=== PATIENT | female | born 1980 | race American Indian/Alaskan Native ===

== ENCOUNTER 2017-04-16 13:36 | Emergency (ER) | payer MEDICAID ==
--- NOTE | 2017-04-16 14:23 | Emergency Department Report ---
Entered by BRIDGER PRASAD, acting as scribe for JOEL GREEN NP. Chief Complaint: Abdominal Pain Stated Complaint: RT FLANK PAIN - HPI History of Present Illness: 37 y/o female, nontoxic, NAD, well developed, c/o diffuse right sided abdominal and flank pain beginning 2 weeks ago. She denies dysuria, polyuria, increased urinary frequency, fever, chills, CP, SOB, NVD, blurry vision, or BOOTH. Patient had her gallbladder removed 1 year ago. - Exam Vital Signs: Vital Signs 04/16/17 13:59 Temperature 98.2 F Pulse Rate 76 Respiratory 18 Rate Blood Pressure 131/79 O2 Sat by Pulse 100 Oximetry Physical Exam: GENERAL: The patient is a well-developed, well-nourished male in no apparent distress. Patient is alert and oriented x3. ABDOMEN: Soft, nontender, and nondistended. Positive bowel sounds. Positive diffuse right sided abdominal pain. Positive right CVA tenderness. No epigastric tenderness. No hepatosplenomegaly was noted. No guarding or rebound tenderness, negative epigastric bruit. Negative psoas sign, negative ontiveros sign , negative McBurneys sign Back: no spinal tenderness, no trauma MSE screening note: Focused history and physical exam performed. Due to findings the following was ordered: CBC, CMP, UA, Serum test, amylase, Lipase ED Disposition for MSE Condition: Stable Instructions: Abdominal Pain (ED) This documentation as recorded by the scribe,BRIDGER PRASAD,accurately reflects the service I personally performed and the decisions made by ,JOEL GREEN, CHERYLE.
[2017-04-16 14:34] LABS: Basophils % (Auto) 1.3 % (0.0-1.8); Eosinophils % (Auto) 2.5 % (0.0-4.3); Hematocrit 38.9 % (30.3-42.9); Hemoglobin 12.7 gm/dl (10.1-14.3); Mean Corpuscular HGB Conc 33 % (30-34); Mean Corpuscular Hemoglobin 27 pg (28-32); Mean Corpuscular Volume 83 fl (79-97); Platelet Count 266 K/mm3 (140-440); Red Blood Count 4.69 M/mm3 (3.65-5.03); Red Cell Distribution Width 13.8 % (13.2-15.2); White Blood Count 5.9 K/mm3 (4.5-11.0)
[2017-04-16 14:50] LABS: Amylase 103 units/L (27-131); Lipase 26 units/L (13-60)
[2017-04-16 15:24] LABS: Bilirubin,Urine NEG (Negative); Blood,Urine SM (Negative); Ketones,Urine NEG (Negative); Leukocyte Esterase,Urine TR (Negative); Nitrite,Urine NEG (Negative); Protein,Urine <15 mg/dL mg/dL (Negative); Urobilinogen,Urine < 2.0 mg/dL (<2.0)
[2017-04-16] MEDS ORDERED: NORCO 5/325 PO ONE (16:23)
--- NOTE | 2017-04-16 17:04 | Emergency Department Report ---
HPI - General Chief Complaint: Abdominal Pain Time Seen by Provider: 04/16/17 16:03 - HPI HPI: This is a 37-year-old Afro-[place] female presents to the emergency department from home with complaint of a 2 week history of intermittent right-sided abdominal and/or flank pains. Sometimes she feels it more in the right lower quadrant, sometimes towards the pelvis, and sometimes up in the right upper quadrant. She has a history of a previous cholecystectomy. The patient has been taking Goody's powder for her discomfort without much relief. She denies any nausea, vomiting, fever, dysuria, vaginal bleeding or discharge. She does not currently have a primary care doctor. No recent travel or sick contacts at home. ED Past Medical Hx - Past Medical History Previous Medical History?: Yes Additional medical history: RUQ abd. pain - Surgical History Hx Cholecystectomy: Yes Additional Surgical History: sep 25 - Social History Smoking Status: Never Smoker Substance Use Type: Non Opiate Pain - Medications Home Medications: Home Medications Medication Instructions Recorded Confirmed Last Taken Type Vit-Fe Fumar-FA [ 1 tab PO QDAY 08/03/15 08/12/15 2 Months Ago History Vitamin] HYDROcodone/APAP 5-325 [Culpeper 1 each PO Q6HR PRN #14 tablet 04/16/17 Unknown Rx 5-325 mg TAB] ED Review of Systems ROS: Stated complaint: RT FLANK PAIN Other details as noted in HPI Comment: All other systems reviewed and negative Constitutional: denies: chills, fever Eyes: denies: eye pain, eye discharge, vision change ENT: denies: ear pain, throat pain Respiratory: denies: cough, shortness of breath, wheezing Cardiovascular: denies: chest pain, palpitations Gastrointestinal: abdominal pain. denies: nausea, vomiting Genitourinary: denies: urgency, dysuria, discharge Musculoskeletal: denies: back pain, joint swelling, arthralgia Skin: denies: rash, lesions Neurological: denies: headache, weakness, paresthesias Physical Exam - Physical Exam Vital Signs: Vital Signs 04/16/17 13:59 Temperature 98.2 F Pulse Rate 76 Respiratory 18 Rate Blood Pressure 131/79 O2 Sat by Pulse 100 Oximetry Physical Exam: GENERAL: The patient is well-developed well-nourished. HEENT: Normocephalic. Atraumatic. Extraocular motions are intact. Patient has moist mucous membranes. Pupils equal reactive to light bilaterally. NECK: Supple. Trachea is midline. CHEST/LUNGS: Clear to auscultation. There is no respiratory distress noted. HEART/CARDIOVASCULAR: Regular. There is no tachycardia. There is no gallop rub or murmur. ABDOMEN: Abdomen is soft. There is some mild reproducible right lower quadrant tenderness to palpation. No guarding rebound tenderness. Patient has normal bowel sounds. There is no abdominal distention. SKIN: There is no rash. There is no edema. There is no diaphoresis. NEURO: The patient is awake, alert, and oriented. The patient is cooperative. The patient has no focal neurologic deficits. The patient has normal speech skin is warm and dry. MUSCULOSKELETAL: There is no tenderness or deformity. There is no limitation range of motion. There is no evidence of acute injury. ED Course Vital Signs 04/16/17 13:59 Temperature 98.2 F Pulse Rate 76 Respiratory 18 Rate Blood Pressure 131/79 O2 Sat by Pulse 100 Oximetry ED Medical Decision Making - Lab Data Result diagrams: 04/16/17 14:15 04/16/17 14:15 - Radiology Data Radiology results: report reviewed, image reviewed interpreted by me: Abdominal x-ray shows nonspecific nonobstructive bowel gas. Right upper quadrant ultrasound is a normal examination In a patient with a previous cholecystectomy. CT of the abdomen and pelvis with IV contrast shows no acute intra-abdominal process. 2 hypodense foci in the liver which have characteristics suggesting a benign hemangioma. Focal cortical thinning of the left kidney related to scarring. Adjacent small cyst in the left kidney. Cyst in the right ovary. Tiny nodular densities in stranding in the subcutaneous tenderness fat over both buttocks. - Medical Decision Making 37-year-old female presents to the emergency department with the complaint of 2 weeks of right sided abdominal pains. Her labs are unremarkable including no leukocytosis, electrolyte abnormalities, renal insufficiency, glucose abnormalities. Her belly labs are normal including bilirubin, lipase and LFTs. No urinary tract infection and the patient is not . X-rays of the abdomen and ultrasound of the right upper quadrant were normal examination so without any acute process. CT of the abdomen pelvis with IV contrast shows a right ovarian cyst, liver hemangiomas but no obvious acute process. She will be given referrals for primary care and gastroenterology and CLINICAL PROGRAM CONSULTANT. She will return to the ER with any worsening of her symptoms or any acute distress. - Differential Diagnosis ovarian cyst, appendicitis, colitis, , fibroid Critical Care Time: No Critical care attestation.: If time is entered above; I have spent that time in minutes in the direct care of this critically ill patient, excluding procedure time. ED Disposition Clinical Impression: Ovarian cyst Abdominal pain Qualifiers: Abdominal location: right lower quadrant Qualified Code(s): R10.31 - Right lower quadrant pain Disposition: DISCHARGED TO HOME OR SELFCARE Is pt being admited?: No Condition: Stable Instructions: Abdominal Pain (ED), Ovarian Cyst (ED) Additional Instructions: Please follow-up with a primary care doctor in the next few days if possible. I given you a referral for a local stock sheets cleaner inspector, Dr. Aguirre, to follow up regarding your abdominal pain and previous history of rectal bleeding. I also have given you some referrals for CLINICAL PROGRAM CONSULTANT. Return to the emergency department with any worsening of your symptoms or any acute distress. You've been prescribed a medication that is sedating. Therefore this medication cannot be mixed with alcohol, or taken prior to driving, working, or being responsible for children. Prescriptions: HYDROcodone/APAP 5-325 [Culpeper 5-325 mg TAB] 1 each PO Q6HR PRN #14 tablet PRN Reason: Pain Referrals: [facility] [Other] - 3-5 Days PATTY AGUIRRE MD [Staff Physician] - 3-5 Days [facility] [Provider Group] - 3-5 Days [facility] [Provider Group] - 3-5 Days SAM DOE MD [Staff Physician] - 3-5 Days Time of Disposition: 19:09
[2017-04-16 17:20] LABS: Alanine Aminotransferase 26 units/L (7-56); Albumin 4.1 g/dL (3.9-5); Albumin/Globulin Ratio 1.1 %; Alkaline Phosphatase 65 units/L (35-129); Anion Gap 22 mmol/L; Blood Urea Nitrogen 6 mg/dL (7-17); Calcium 9.8 mg/dL (8.4-10.2); Carbon Dioxide 22 mmol/L (22-30); Chloride 100.4 mmol/L (98-107); Glucose 85 mg/dL (65-100); Potassium 3.9 mmol/L (3.6-5.0); Sodium 140 mmol/L (137-145); Total Protein 7.9 g/dL (6.3-8.2)
[2017-04-16] MEDS ORDERED: NACL ONE (17:26)
--- NOTE | 2017-04-16 18:45 | Cat Scan Report ---
FINAL REPORT EXAM: CT ABDOMEN PELVIS W CON HISTORY: Abd pain TECHNIQUE: Standard enhanced CT of the abdomen and pelvis. Delayed images through the kidneys and bladder were obtained. Coronal and sagittal reconstruction was also performed. Contrast: 100 mL Omnipaque 300 given IV. PRIORS: Ultrasound RUQ 04/16/2017 FINDINGS: Within the abdomen, the liver demonstrates an ovoid 1.0 x 1.3 cm hypodense focus in the inferior right lobe (axial image 133). This has peripheral nodular enhancement is likely a small hemangioma. There is a 2nd similar focus adjacent to the inferior vena cava along the dome of the liver measuring 1.1 x 1.0 cm (axial image 60). On delayed images, both of these areas have as the some homogeneous enhancement, favoring hemangiomas The left kidney demonstrates focal cortical thinning in the midpole. There is an underlying hypodense 1 cm focus (axial image 136), probably a small cyst. The spleen, pancreas, adrenal glands, and right kidney are unremarkable. Gallbladder has been surgically removed. No evidence for retroperitoneal or pelvic lymphadenopathy is seen. Moderate stool is present throughout the colon, most marked in the ascending colon. The small bowel loops have normal caliber. No soft tissue mass, fluid collection, inflammatory change, or free air is seen within the abdomen or pelvis. The appendix is normal. Within the pelvis, the bladder is unremarkable. The uterus is normal. There is a small 2 cm cyst in the right ovary. No evidence for mass or lymphadenopathy is seen in the pelvis. Images through the upper abdomen include the lung bases which are expanded and clear. Bony structures show no focal abnormalities and are intact. In the subcutaneous fat over both buttocks, there are numerous tiny nodular densities and linear stranding. Clinical significance is uncertain. Does this patient have a history of multiple injection sites? IMPRESSION: 1. no acute intra-abdominal process noted. 2. Two hypodense foci in the liver which have characteristics suggest a benign hemangiomas. 3. Focal cortical thinning in the left kidney related to scarring. Adjacent small cyst in the left kidney. 4. Cyst in the right ovary. 5. Numerous tiny nodular densities in stranding in the subcutaneous fat over both buttocks of uncertain clinical significance.
--- NOTE | 2017-04-16 18:50 | Ultrasound Report ---
FINAL REPORT EXAM: US ABDOMEN LIMITED HISTORY: RUQ pain TECHNIQUE: Right upper quadrant ultrasound PRIORS: CT a/P 04/16/2017 FINDINGS: Gallbladder has been surgically removed. Common bile duct is normal in diameter measuring 2.8 mm. The liver is normal and homogeneous in echogenicity without focal abnormality or intrahepatic biliary dilatation. The pancreas is normal in thickness without focal abnormality or pancreatic duct dilatation. The distal pancreatic tail is not visualized due to bowel gas. The right kidney is normal in size without calculi or hydronephrosis. Right kidney measures 10.3 cm in craniocaudal length. IMPRESSION: Normal right upper quadrant ultrasound. Prior cholecystectomy.
[2017-04-16 20:20] VITALS: BP 121/79
--- NOTE | 2017-04-17 08:21 | XRay Report ---
ABDOMEN TWO VIEWS: 04/16/17 16:23:00 CLINICAL: Right sided abdominal pain. COMPARISON:None. FINDINGS: Supine upright views demonstrate a normal bowel gas pattern with a moderately large volume of stool throughout the colon. No distended bowel and no air-fluid levels. No mass or suspicious calcifications. Surgical clips in right upper quadrant. No pneumoperitoneum. A right pelvic phlebolith. The bones and soft tissues are normal. IMPRESSION: Negative abdomen.
== END 2017-04-16 20:11 | disposition home or self-care (01) ==
LOC: ED 13:36
DX: N83.201 Unspecified ovarian cyst, right side (principal); Z90.49 Acquired absence of other specified parts of digestive tract
CPT/HCPCS: 36415; 74020; 74177; 76705; 80053; 81001; 82150; 83690; 84703; 85025; 99284; Q9967